=== PATIENT | male | born 1990 ===

== ENCOUNTER 2017-01-18 16:29 | Emergency (ER) | payer OTHER ==
[2017-01-18 16:38] VITALS: BP 90/48; PULSE 102; RESP 16; TEMP 98.6; O2SAT 100
--- NOTE | 2017-01-18 18:01 | ED PDOC ---
HPI: General Adult Time Seen by Provider: 01/18/17 16:53 Chief Complaint (Nursing): ENT Problem History Per: Patient Additional Complaint(s): Pt. states since yesterday she's noticed worsening swelling to the R earlobe which became worse yesterday. Pt. states he experienced a large amount of pain to the area prompting him to poke the area with a needle and he was able to express both blood and pus to the area. Pt. states that this morning he woke up with a sore throat. Also reports contacting his master steam yacht who advised him to come to ED. Denies fever, cough, congestion, rash, hearing changes, trauma, head injury. Past Medical History Reviewed: Historical Data, Nursing Documentation, Vital Signs Vital Signs: Last Vital Signs Temp 98.6 F 01/18/17 16:34 Pulse 102 H 01/18/17 16:34 Resp 16 01/18/17 16:34 BP 90/48 L 01/18/17 16:34 Pulse Ox 100 01/18/17 16:34 - Family History Family History: States: No Known Family Hx - Home Medications Home Medications: Ambulatory Orders Medication Instructions Recorded Cephalexin [cephalexin] 500 mg PO Q6 #28 cap 01/18/17 Naproxen [Naprosyn] 500 mg PO BID PRN #30 tab 01/18/17 Sulfamethoxazole/Trimethoprim 2 tab PO BID #28 tab 01/18/17 [Bactrim DS 800 mg-160 mg] - Allergies Allergies/Adverse Reactions: Allergies Allergy/AdvReac Type Severity Reaction Status Date / Time No Known Allergies Allergy Verified 01/18/17 16:34 Review of Systems ROS Statement: Except As Marked, All Systems Reviewed And Found Negative ENT: Positive for: Ear Pain Physical Exam - Physical Exam Appears: Positive for: Well, Non-toxic, No Acute Distress Head Exam: Positive for: ATRAUMATIC, NORMAL INSPECTION, NORMOCEPHALIC Skin: Positive for: Normal Color, Warm. Negative for: Rash ENT: Positive for: TM Is/Are (non-erythematous, non-bulging b/l), Hearing Is ( grossly intact), Pharyngeal Erythema, Other (R earlobe mass with indurated mass which is erythematous without fluctuance). Negative for: Tonsillar Exudate, Tonsillar Swelling - ECG O2 Sat by Pulse Oximetry: 100 - Progress ED Course And Treament: Pt. informed of risk of scarring to earlobe and decision was made to forego I&D and pt. will try trial of antibiotics. Instructed to f/u with his master steam yacht and to apply warm compresses to area. Rapid strep screen: negative Disposition - Clinical Impression Clinical Impression: Pharyngitis, Cellulitis - Patient ED Disposition Is Patient to be Admitted: No - Disposition Referrals: Levi Gonzales MD [Staff Provider] - [facility] [Outside] Disposition: Routine/Home Disposition Time: 18:11 Condition: STABLE Additional Instructions: RETURN TO ED IMMEDIATELY FOR ANY CONCERNS OR QUESTIONS OR IF FEVER DEVELOPS. Prescriptions: Cephalexin [cephalexin] 500 mg PO Q6 #28 cap Naproxen [Naprosyn] 500 mg PO BID PRN #30 tab PRN Reason: Pain Sulfamethoxazole/Trimethoprim [Bactrim DS 800 mg-160 mg] 2 tab PO BID #28 tab Instructions: Cellulitis (ED), Pharyngitis (ED) Forms: [employer] ([place]) Print Language: UKRAINIAN
== END 2017-01-18 18:31 | disposition home or self-care (01) ==
LOC: H.ER 16:29
DX: H60.11 Cellulitis of right external ear (principal); J02.9 Acute pharyngitis, unspecified

== ENCOUNTER 2017-06-14 06:47 | Emergency (ER) | payer OTHER ==
[2017-06-14 07:02] VITALS: BP 134/84; PULSE 86; RESP 18; TEMP 97.8; O2SAT 98
--- NOTE | 2017-06-14 07:15 | ED PDOC ---
HPI: Psych/Substance Abuse Time Seen by Provider: 06/14/17 07:07 Chief Complaint (Nursing): Alcohol Ingestion Chief Complaint (Provider): Alcohol Intoxication History Per: Patient, EMS History/Exam Limitations: no limitations Onset/Duration Of Symptoms: Hrs Current Symptoms Are (Timing): Still Present Suicide/Self Injury Attempted (Context): None Modifying Factor(s): Alcohol Severity: None Involuntary Hold By: None Additional Complaint(s): Trenton Garsia, a 27 year old male, is brought into the ED by EMS for alcohol intoxication. The patient admits to consuming alcohol last night. PMD: Non [facility] Provider, Past Medical History Reviewed: Historical Data, Nursing Documentation, Vital Signs Vital Signs: Last Vital Signs Temp 97.8 F 06/14/17 06:56 Pulse 86 06/14/17 06:56 Resp 18 06/14/17 06:56 BP 134/84 06/14/17 06:56 Pulse Ox 98 06/14/17 06:56 - Medical History PMH: No Chronic Diseases - Surgical History Surgical History: No Surg Hx - Family History Family History: States: Unknown Family Hx - Social History Alcohol: < 2 Drinks/Day - Home Medications Home Medications: Ambulatory Orders Medication Instructions Recorded Cephalexin [cephalexin] 500 mg PO Q6 #28 cap 01/18/17 Naproxen [Naprosyn] 500 mg PO BID PRN #30 tab 01/18/17 Sulfamethoxazole/Trimethoprim 2 tab PO BID #28 tab 01/18/17 [Bactrim DS 800 mg-160 mg] - Allergies Allergies/Adverse Reactions: Allergies Allergy/AdvReac Type Severity Reaction Status Date / Time No Known Allergies Allergy Verified 01/18/17 16:34 Review of Systems ROS Statement: Except As Marked, All Systems Reviewed And Found Negative Psych: Positive for: Other (alcohol intoxication) Physical Exam - Reviewed Nursing Documentation Reviewed: Yes Vital Signs Reviewed: Yes - Physical Exam Appears: Positive for: Non-toxic, No Acute Distress Head Exam: Positive for: ATRAUMATIC, NORMAL INSPECTION, NORMOCEPHALIC Skin: Positive for: Normal Color, Warm, Dry Eye Exam: Positive for: Normal appearance, EOMI, PERRL. Negative for: Nystagmus ENT: Positive for: Normal ENT Inspection. Negative for: Nasal Congestion, Tonsillar Exudate Neck: Positive for: Normal, Painless ROM, Supple Cardiovascular/Chest: Positive for: Regular Rate, Rhythm, Chest Non Tender. Negative for: Tachycardia Respiratory: Positive for: Normal Breath Sounds. Negative for: Rales, Rhonchi, Wheezing, Respiratory Distress Gastrointestinal/Abdominal: Positive for: Normal Exam, Bowel Sounds, Soft. Negative for: Mass, Guarding, Rebound Back: Positive for: Normal Inspection. Negative for: L CVA Tenderness, R CVA Tenderness Extremity: Positive for: Normal ROM. Negative for: Tenderness, Deformity, Swelling Lymphatic: Positive for: Normal Exam. Negative for: Adenopathy Neurologic/Psych: Positive for: Alert (Awake responding to questions ), Oriented , Gait. Negative for: Motor/Sensory Deficits, Aphasia, Facial Droop - ECG O2 Sat by Pulse Oximetry: 98 (RA) Pulse Ox Interpretation: Normal - Progress Re-evaluation Time: 08:04 Condition: Improved (awake alert no focal deficits) Medical Decision Making Medical Decision Makin Initial Impression: 27 y/o male presenting with alcohol intoxication Initial Plan: * Reevaluation Scribe Attestation Documented by Poppy Henry acting as a scribe for Ru Verma MD. Provider Attestation All medical record entries made by the Scribe were at my direction and personally dictated by me. I have reviewed the chart and agree that the record accurately reflects my personal performance of the history, physical exam, medical decision making, and the department course for this patient. I have also personally directed, reviewed, and agree with the discharge instructions and disposition. Disposition - Clinical Impression Clinical Impression: Alcohol use - Patient ED Disposition Is Patient to be Admitted: No Counseled Patient/Family Regarding: Diagnosis, Need For Followup - Disposition Disposition: Routine/Home Disposition Time: 08:04 Condition: FAIR Instructions: Alcohol Intoxication (ED) Forms: [email or web address] (Portuguese)
== END 2017-06-14 08:21 | disposition home or self-care (01) ==
LOC: H.ER 06:47
DX: F10.129 Alcohol abuse with intoxication, unspecified (principal)

== ENCOUNTER 2017-11-25 02:11 | Emergency (ER) | payer OTHER ==
[2017-11-25 02:32] VITALS: BMI 25.7
[2017-11-25 02:39] VITALS: O2SAT 98
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
[2017-11-25 05:47] VITALS: BP 122/78; PULSE 86; RESP 16; TEMP 98.2
== END 2017-11-25 04:55 | disposition home or self-care (01) ==
LOC: H.ER 02:11
DX: S00.83XA Contusion of other part of head, initial encounter (principal); S09.90XA Unspecified injury of head, initial encounter; Y04.0XXA Assault by unarmed brawl or fight, initial encounter; Y92.89 Other specified places as the place of occurrence of the external cause; F41.9 Anxiety disorder, unspecified; Z87.820 Personal history of traumatic brain injury